=== PATIENT | male | born 1945 | race Caucasian/White ===

== ENCOUNTER → 2018-02-06 | Outpatient (CLI) | payer OTHER ==
[~2018-02-06] VITALS: Ht 179.1 cm; Wt 110.7 kg
[~2018-02-06] MED LIST: ASPIR 8181 M1 PO; CLARITIN,ALAVAR10 MG PO; FISH OIL 1,0001 EAC7 PO; GLUCOPHAGE1000 MG PO; GLUCOTROL10 MG PO; MULTIPLE VITAM1 EACH PO; ROBITUSSIN AC,T10 ML PO; VITAMIN E400 UNIT PO; ZESTRIL10 MG PO; ZITHROMAX Z-PA250 MG PO; ZOCOR10 MG PO; ZYLOPRIM300 MG PO
== END | disposition home or self-care (01) ==
LOC: AMB 07:29
PROVIDERS: Urology
PROC: 0TF4XZZ Fragmentation in Left Kidney Pelvis, External Approach (ICD-10-PCS; principal; 2018-02-06)
DX: N20.0 Calculus of kidney (principal)
CPT/HCPCS: 74019; 82948; 93005; J2250; J3010